=== PATIENT | female | born 1990 ===

== ENCOUNTER → 2022-03-31 | Outpatient (REF) | payer OTHER | LOC: M LAB REF 21:06 | PROVIDERS: ATTEND Physician Assistant | DX: J02.9 Acute pharyngitis, unspecified (principal) ==

== ENCOUNTER → 2023-05-23 | Outpatient (REF) | payer OTHER | LOC: M LAB REF 16:30 | PROVIDERS: ATTEND Physician Assistant | DX: J02.9 Acute pharyngitis, unspecified (principal) ==